=== PATIENT | male | born 1990 | race Two or more races ===

== ENCOUNTER 2024-01-31 17:53 | Emergency (ER) | payer OTHER ==
[~2024-01-31] VITALS: Ht 167.6 cm; Wt 68.0 kg
[2024-01-31] MEDS ORDERED: TETANUS & DIPHTHERIA TOX,ADULT 0.5 ML VIAL IM ONE (18:45)
[2024-01-31] MEDS ORDERED: CLINDAMYCIN PHOSPHATE 150 MG/ML (600mg) IV ONE (18:45)
[2024-01-31] MEDS ORDERED: KETOROLAC TROMETHAMINE 15 MG VIAL IV ONE (19:30)
== END 2024-01-31 20:39 | disposition home or self-care (01) ==
LOC: ER 17:57
DX: S68.119A Complete traumatic metacarpophalangeal amputation of unspecified finger, initial encounter (principal); X58.XXXA Exposure to other specified factors, initial encounter; Y93.89 Activity, other specified; Y92.89 Other specified places as the place of occurrence of the external cause; Y99.8 Other external cause status